=== PATIENT | female | born 1955 | race Two or more races ===

== ENCOUNTER 2018-07-03 08:21 | Outpatient (CLI) | payer OTHER ==
[2018-07-03] MEDS ORDERED: LOSARTAN-HCTZ1 EAC2 PO (12:16)
[2018-07-03] MEDS ORDERED: VERAPAMIL HCL240 M1 PO (12:17)
[2018-07-03] MEDS ORDERED: VASOFLEX (12:17)
== END 2018-07-03 08:28 | disposition home or self-care (01) ==
LOC: EKG 08:21
DX: I10 Essential (primary) hypertension (principal)

== ENCOUNTER → 2018-09-05 | Day surgery (SDC) | payer OTHER ==
[~2018-09-05] MED LIST: FORTAMET500 MG PO; LOSARTAN-HCTZ1 EAC1 PO; LOSARTAN-HCTZ1 EAC2 PO; NABUMETONE750 MG PO; PERCOCET 5-3251 EACH PO; VASOFLEX; VERAPAMIL HCL240 M1 PO; VERAPAMIL HCL40 MG PO
== END | disposition home or self-care (01) ==
LOC: ADM 08-30 12:30 → CIR.AMB 06:10
DX: D17.24 Benign lipomatous neoplasm of skin and subcutaneous tissue of left leg (principal)

== ENCOUNTER 2020-02-25 07:29 | Outpatient (CLI) | payer OTHER | END 2020-02-25 07:41 | disposition home or self-care (01) | LOC: TOM 07:29 | PROVIDERS: ATTEND Internal Medicine Gastroenterology | DX: D17.71 Benign lipomatous neoplasm of kidney (principal); K57.90 Diverticulosis of intestine, part unspecified, without perforation or abscess without bleeding; K56.600 Partial intestinal obstruction, unspecified as to cause; K56.50 Intestinal adhesions [bands], unspecified as to partial versus complete obstruction ==

== ENCOUNTER 2021-02-12 12:41 | Emergency (ER) | payer OTHER ==
[~2021-02-12] VITALS: Ht 160 cm; Wt 88.0 kg
[2021-02-12] MEDS ORDERED: HYDROCHLOROTH12.5 MG PO (13:29)
== END 2021-02-12 17:17 | disposition home or self-care (01) ==
LOC: ER 12:41
DX: J45.998 Other asthma (principal); J22 Unspecified acute lower respiratory infection; Z03.818 Encounter for observation for suspected exposure to other biological agents ruled out

== ENCOUNTER 2021-03-26 09:59 | Outpatient (CLI) | payer OTHER ==
[~2021-03-26 09:59] MED LIST changes: +HYDROCHLOROTH12.5 MG PO
== END 2021-03-26 10:08 | disposition home or self-care (01) ==
LOC: MRI 09:59
DX: M16.11 Unilateral primary osteoarthritis, right hip (principal); M25.551 Pain in right hip; M87.051 Idiopathic aseptic necrosis of right femur
CPT/HCPCS: 73218; 73718